=== PATIENT | male | born 1960 | race Caucasian/White ===

== ENCOUNTER 2017-05-17 09:09 | Emergency (ER) | payer BC ==
[~2017-05-17] VITALS: Ht 170.2 cm; Wt 86.2 kg
[2017-05-17] MEDS ORDERED: [UNRECOGNIZED DRUG - REMARK] PO (09:35)
[2017-05-17] MEDS ORDERED: TRULICITY0.75 MG/0. SQ (09:35)
[2017-05-17] MEDS ORDERED: METOPROLOL TART25 MG ORAL (09:35)
[2017-05-17] MEDS ORDERED: CRESTOR40 MG ORAL (09:35)
[2017-05-17] MEDS ORDERED: jardiance (09:35)
[2017-05-17] MEDS ORDERED: PLAVIX75 MG ORAL (09:35)
[2017-05-17] MEDS ORDERED: METFORMIN HCL1000 M1 ORAL (09:35)
[2017-05-17] MEDS ORDERED: ASPIR 8181 MG ORAL (09:35)
[2017-05-17] MEDS ORDERED: Dicyclomine HCl 10mg/5ml oral soln ORAL ONE (09:45)
--- NOTE | 2017-05-17 10:01 | Emergency Room Report ---
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 Within 2 days patient developed severe watery diarrhea, occurring almost every 2 hours for last 5 days. No blood in stool, no foreign travel, no sick contacts, no recent antibiotic use. H. and spoke to family friend Dr. Schrader who would byes patient to "check C. difficile anyway" although patient on antibiotics because patient had a sick with cancer who he does not want to sick. Patient able to tolerate by mouth but feels dehydrated Allergies: Coded Allergies: No Known Allergies (Unverified , 05/17/17) Patient History Past Medical History: DM Past Surgical History: none Pertinent Family History: none Social History: Denies: smoking, alcohol use, drug use Immunizations: UTD Reviewed Nursing Documentation: PMH: Agreed, PSxH: Agreed Nursing Documentation-PMH Hx Cardiac Problems: Yes - Eight stents Hx Diabetes: Yes Review of Systems All Other Systems: negative except mentioned in HPI Physical Exam Vital Signs Date Time Temp Pulse Resp B/P (MAP) Pulse Ox O2 Delivery O2 Flow Rate FiO2 05/17/17 09:12 98.2 90 16 156/90 97 Room Air Sp02 EP Interpretation: reviewed, normal General Appearance: normal inspection, well appearing, no apparent distress, alert, GCS 15, non-toxic Head: normocephalic, atraumatic Eyes: bilateral eye PERRL, bilateral eye EOMI ENT: normal ENT inspection, hearing grossly normal, normal voice Neck: normal inspection, full range of motion, supple, no bony tend Respiratory: normal inspection, lungs clear, normal breath sounds, no respiratory distress, no retraction, no wheezing Cardiovascular #1: regular rate, rhythm, no edema Gastrointestinal: normal inspection, normal bowel sounds, soft, no guarding, no hernia, other - mild epigastric tenderness Genitourinary: no CVA tenderness Musculoskeletal: normal inspection, back normal, normal range of motion, Kirsty' s Sign negative Neurologic: normal inspection, alert, oriented x3, responsive, aerographer III-XII nml as tested, motor strength/tone normal, speech normal Psychiatric: normal inspection, judgement/insight normal, mood/affect normal Skin: normal inspection, normal color, no rash Medical Decision Making Diagnostic Impression: Primary Impression: Diarrhea Qualified Codes: R19.7 - Diarrhea, unspecified ER Course 56-year-old male with 5 days of diarrhea likely due to trulicity injection Up to date shows that up to 10% of patients experience some kind of GI side effects, including 9-13% experiencing diarrhea. Eyes patient stopped using trulicity no Metabolic abnormalities on review of CMP Patient feels better after IV fluid hydration c. difficile assay will take one day to come back Follow up with patient with results Prescription Bentyl as needed for diarrhea Discharge home ER course: Patient has remained stable during ED stay. Patient is to be discharged to home. Prescriptions given are bentyl Patient is instructed to follow up with their primary care doctor within 5 days. Strict return precautions discussed with patient such as fever, chills, worsening/severe pain, nausea, vomiting, which may indicate severe illness. Patient verbalizes understanding and agrees with plan. Please note that this Emergency Department Report was dictated using eyeOSclassification inspector technology software, occasionally this can lead to erroneous entry secondary to interpretation by the dictation equipment Last Vital Signs Date Time Temp Pulse Resp B/P (MAP) Pulse Ox O2 Delivery O2 Flow Rate FiO2 05/17/17 09:12 98.2 90 16 156/90 97 Room Air Status: improved Disposition: HOME, SELF-CARE Referrals: NON PHYSICIAN (PCP) GIL GREEN M.D. May 17, 2017 10:01
[2017-05-17 10:20] LABS: APPEARANCE,URINE CLEAR; KETONES,URINE NEGATIVE (NEGATIVE); LEUKOCYTE ESTERASE ,URINE NEGATIVE (NEGATIVE); NITRITE,URINE NEGATIVE (NEGATIVE); PH,URINE 6 (4.5-8.0); PROTEIN,URINE NEGATIVE (NEGATIVE); UROBILINOGEN,URINE NORMAL MG/DL (0.0-1.0)
[2017-05-17 10:21] LABS: BASOPHILS % (AUTO) 1.2 % (0.0-2.0); EOSINOPHILS % (AUTO) 4.9 % (0.0-3.0); LYMPHOCYTES % (AUTO) 15.4 % (20.0-45.0); MEAN CORPUSCULAR HEMOGLOBIN 32.9 PG (27.0-31.0); MEAN CORPUSCULAR HGB CONC 34.9 G/DL (32.0-36.0); MEAN CORPUSCULAR VOLUME 94 FL (80-99); MEAN PLATELET VOLUME 9.2 FL (6.5-10.1); MONOCYTES % (AUTO) 8.8 % (1.0-10.0); NEUTROPHILS % (AUTO) 69.6 % (45.0-75.0); PLATELET COUNT 173 K/UL (150-450); RED BLOOD COUNT 5.36 M/UL (4.70-6.10); RED CELL DISTRIBUTION WIDTH 12.1 % (11.6-14.8); WHITE BLOOD COUNT 8.5 K/UL (4.8-10.8)
[2017-05-17 10:36] LABS: ANION GAP 7 mmol/L (5-15); CALCIUM 9.3 MG/DL (8.5-10.1); CARBON DIOXIDE 27 MMOL/L (21-32); CHLORIDE 101 MMOL/L (98-107); CREATININE 1.3 MG/DL (0.55-1.30); GLOMERULAR FILTRATION RATE 57.1 mL/min (>60); POTASSIUM 4.2 MMOL/L (3.5-5.1); SODIUM 135 MMOL/L (136-145)
[2017-05-17 10:40] LABS: ALANINE AMINOTRANSFERASE 41 U/L (12-78); ALBUMIN/GLOBULIN RATIO 1.2 (1.0-2.7); ASPARTATE AMINO TRANSFERASE 26 U/L (15-37); LIPASE 69 U/L (73-393); TOTAL PROTEIN 7.7 G/DL (6.4-8.2)
[2017-05-17] MEDS ORDERED: BENTYL10 MG ORAL (11:02)
[2017-05-17 11:21] VITALS: BP 152/78
== END 2017-05-17 11:25 | disposition home or self-care (01) ==
LOC: EMR 09:25
DX: R19.7 Diarrhea, unspecified (principal); E11.9 Type 2 diabetes mellitus without complications
CPT/HCPCS: 36415; 80053; 81003; 82962; 83690; 85025; 87324; 96360; 96374; 99284; S0028

== ENCOUNTER 2017-05-31 17:09 | Emergency (ER) | payer BC ==
[~2017-05-31] VITALS: Ht 170.2 cm; Wt 88.5 kg
[~2017-05-31 17:09] MED LIST: ASPIR 8181 MG ORAL; BENTYL10 MG ORAL; CRESTOR40 MG ORAL; METFORMIN HCL1000 M1 ORAL; METOPROLOL TART25 MG ORAL; PLAVIX75 MG ORAL; TRULICITY0.75 MG/0. SQ; [UNRECOGNIZED DRUG - REMARK] PO; jardiance
[2017-05-31] MEDS ORDERED: Vancomycin 1.5gm/D5W 250ml 250 ML IVPB ONE (18:15)
[2017-05-31 18:35] LABS: BASOPHILS % (AUTO) 1.1 % (0.0-2.0); EOSINOPHILS % (AUTO) 6.1 % (0.0-3.0); MEAN CORPUSCULAR HEMOGLOBIN 30.7 PG (27.0-31.0); MEAN CORPUSCULAR HGB CONC 32.1 G/DL (32.0-36.0); MEAN CORPUSCULAR VOLUME 96 FL (80-99); MEAN PLATELET VOLUME 8.3 FL (6.5-10.1); MONOCYTES % (AUTO) 7.6 % (1.0-10.0); NEUTROPHILS % (AUTO) 63.2 % (45.0-75.0); PLATELET COUNT 147 K/UL (150-450); RED BLOOD COUNT 4.84 M/UL (4.70-6.10); RED CELL DISTRIBUTION WIDTH 12.4 % (11.6-14.8); WHITE BLOOD COUNT 8.3 K/UL (4.8-10.8)
[2017-05-31 18:47] LABS: PROTHROMBIN TIME 10.1 SEC (9.30-11.50)
[2017-05-31 19:01] LABS: ANION GAP 6 mmol/L (5-15); CALCIUM 9.3 MG/DL (8.5-10.1); CARBON DIOXIDE 32 MMOL/L (21-32); CHLORIDE 104 MMOL/L (98-107); CREATININE 1.1 MG/DL (0.55-1.30); GLOMERULAR FILTRATION RATE > 60 mL/min (>60); POTASSIUM 4.1 MMOL/L (3.5-5.1); SODIUM 141 MMOL/L (136-145)
[2017-05-31 19:06] LABS: ALANINE AMINOTRANSFERASE 40 U/L (12-78); ALBUMIN/GLOBULIN RATIO 1.1 (1.0-2.7); ASPARTATE AMINO TRANSFERASE 31 U/L (15-37); TOTAL PROTEIN 7.5 G/DL (6.4-8.2)
[2017-05-31] MEDS ORDERED: VIBRAMYCIN100 MG ORAL (20:32)
[2017-05-31 20:55] VITALS: BP 146/83
--- NOTE | 2017-05-31 23:49 | Emergency Room Report ---
History of Present Illness General Chief Complaint: Lower Extremity Injury Source: Patient Present Illness HPI The patient is a 56 old male with history of diabetes presenting for left lower leg swelling. He states that he first had a knee injury to the left toe 4 days prior. He is now having pain and redness to the left lower leg. Pain described as a 5/10 dull ache. Does not radiate. Worse with movement and touch. He denies any fever or chills. He denies other symptoms including SOB, CP, cough Allergies: Coded Allergies: No Known Allergies (Unverified , 05/17/17) Patient History Past Medical History: see triage record Pertinent Family History: none Reviewed Nursing Documentation: PMH: Agreed, PSxH: Agreed Nursing Documentation-PMH Hx Cardiac Problems: Yes - Eight stents Hx Diabetes: Yes Review of Systems All Other Systems: negative except mentioned in HPI Physical Exam Vital Signs Date Time Temp Pulse Resp B/P (MAP) Pulse Ox O2 Delivery O2 Flow Rate FiO2 05/31/17 17:23 98.2 71 18 146/83 98 Sp02 EP Interpretation: reviewed, normal General Appearance: no apparent distress, alert, GCS 15, non-toxic Head: normocephalic, atraumatic Eyes: bilateral eye normal inspection, bilateral eye PERRL Respiratory: chest non-tender, lungs clear, normal breath sounds, speaking full sentences Musculoskeletal: normal range of motion, calf tenderness - L inferior calf, swelling - L lower leg, tender - L lower leg Neurologic: alert, oriented x3, responsive, motor strength/tone normal, sensory intact, speech normal Psychiatric: judgement/insight normal, memory normal, mood/affect normal, no suicidal/homicidal ideation Skin: normal color, no rash, warm/dry, well hydrated Medical Decision Making PA Attestation Dr. Gomez is my supervising physician. Patient management was discussed with my supervising physician Diagnostic Impression: Primary Impression: Cellulitis, leg Qualified Codes: L03.116 - Cellulitis of left lower limb ER Course The patient is a 56 old male with history of diabetes presenting for left lower leg swelling. DDx considered but not limited to: DVT, cellulitis, muscle strain, among others Physical exam: Afebrile. No apparent distress Left lower leg has erythema from the mid tibia to the ankle. Tenderness to palpation over distal calf. There is 1+ edema. Cap refill < 2 seconds Blood work is unremarkable. Leukocytosis Venous duplex of the left lower extremity unremarkable. No DVT The patient is given dose of IV antibiotics in the emergency room and will be discharged home with prescription for doxycycline per Dr. Swami Mobley's request. I spoke with her over the phone He will FU with PMD. ER precautions given Laboratory Tests Test 05/31/17 18:25 White Blood Count 8.3 K/UL (4.8-10.8) Red Blood Count 4.84 M/UL (4.70-6.10) Hemoglobin 14.9 G/DL (14.2-18.0) Hematocrit 46.3 % (42.0-52.0) Mean Corpuscular Volume 96 FL (80-99) Mean Corpuscular Hemoglobin 30.7 PG (27.0-31.0) Mean Corpuscular Hemoglobin Concent 32.1 G/DL (32.0-36.0) Red Cell Distribution Width 12.4 % (11.6-14.8) Platelet Count 147 K/UL (150-450) L Mean Platelet Volume 8.3 FL (6.5-10.1) Neutrophils (%) (Auto) 63.2 % (45.0-75.0) Lymphocytes (%) (Auto) 22.0 % (20.0-45.0) Monocytes (%) (Auto) 7.6 % (1.0-10.0) Eosinophils (%) (Auto) 6.1 % (0.0-3.0) H Basophils (%) (Auto) 1.1 % (0.0-2.0) Prothrombin Time 10.1 SEC (9.30-11.50) Prothrombin Time INR 1.0 (0.9-1.1) PTT 26 SEC (23-33) Sodium Level 141 MMOL/L (136-145) Potassium Level 4.1 MMOL/L (3.5-5.1) Chloride Level 104 MMOL/L (98-107) Carbon Dioxide Level 32 MMOL/L (21-32) Anion Gap 6 mmol/L (5-15) Blood Urea Nitrogen 16 mg/dL (7-18) Creatinine 1.1 MG/DL (0.55-1.30) Estimate Glomerular Filtration Rate > 60 mL/min (>60) Glucose Level 156 MG/DL (74-106) H Calcium Level 9.3 MG/DL (8.5-10.1) Total Bilirubin 0.6 MG/DL (0.2-1.0) Aspartate Amino Transferase (AST) 31 U/L (15-37) Alanine Aminotransferase (ALT) 40 U/L (12-78) Alkaline Phosphatase 81 U/L (46-116) Total Protein 7.5 G/DL (6.4-8.2) Albumin 4.0 G/DL (3.4-5.0) Globulin 3.5 g/dL Albumin/Globulin Ratio 1.1 (1.0-2.7) Lab Results Impression Unremarkable. No leukocytosis CT/MRI/US Diagnostic Results CT/MRI/US Diagnostic Results : Imaging Test Ordered: L leg venous duplex Impression essentially negative Last Vital Signs Date Time Temp Pulse Resp B/P (MAP) Pulse Ox O2 Delivery O2 Flow Rate FiO2 05/31/17 20:55 98.2 18 146/83 98 05/31/17 17:23 71 Status: improved Disposition: HOME, SELF-CARE Condition: Improved Scripts Doxycycline Hyclate* (VIBRAMYCIN*) 100 Mg Capsule 100 MG ORAL EVERY 12 HOURS, #14 CAP 0 Refills Prov: JESUS MADRID 05/31/17 Referrals: NOT CHOSEN IPA/MD,REFERRING (PCP) Patient Instructions: Cellulitis Additional Instructions: I discussed my findings with the patient. All questions and concerns have been answered. Treatment and medication compliance have been addressed. I advised the patient that they need to follow up with PMD in 3-5 days. Return to ED if symptoms worsen, new symptoms arise, or if needed for any reason. Patient verbalized understanding of discharge instructions. JESUS MADRID May 31, 2017 23:49
--- NOTE | 2017-06-11 00:09 | Diagnostic Imaging Report ---
APPROVED REPORT CPT Code: 49585 Present Symptoms Comments: R/O DVT LEFT LEG: Venous imaging reveals a patent deep venous system. There is no evidence of thrombus within the femoral, popliteal or tibial segments. The greater saphenous vein is also within normal limits. Doppler indicates normal spontaneous flow within these segments.
== END 2017-05-31 20:55 | disposition home or self-care (01) ==
LOC: EMR 18:00
DX: L03.116 Cellulitis of left lower limb (principal); E11.9 Type 2 diabetes mellitus without complications
CPT/HCPCS: 36415; 80053; 85025; 85610; 85730; 93971; 96374; 99284; J3370